=== PATIENT | female | born 1995 | race Caucasian/White ===

== ENCOUNTER 2018-04-12 22:34 | Observation (INO) | payer MEDICAID ==
[~2018-04-12] VITALS: Ht 149.9 cm; Wt 53.6 kg
[2018-04-12 22:43] VITALS: BP 124/69
[2018-04-12 23:22] LABS: MICROSCOPIC INDICATED
[2018-04-13 00:11] LABS: MICROSCOPIC NOT IND
[2018-04-13 00:54] LABS: CULTURE INDICATED? NO
== END 2018-04-13 01:40 | disposition home or self-care (01) ==
LOC: LDOP 22:34 → LDIP 04-13 00:30
PROVIDERS: ADMIT Student in an Organized Health Care Education/Training Program; ATTEND Student in an Organized Health Care Education/Training Program
DX: O47.03 False labor before 37 completed weeks of gestation, third trimester (principal); Z3A.35 35 weeks gestation of pregnancy
CPT/HCPCS: 59025; 81001; 81003; 87086; 99211; G0378; G0463

== ENCOUNTER 2018-05-13 22:34 | Inpatient (IN) | payer MEDICAID ==
[~2018-05-13] VITALS: Ht 149.9 cm; Wt 57.0 kg
[2018-05-13] MEDS ORDERED: D5%-LACTATED RINGERS 1,000 ML IV SCH (22:54)
[2018-05-13] MEDS ORDERED: OXYTOCIN 30U/ 0.9% NaCL 500ML 500 ML IV ONE (22:54)
[2018-05-13] MEDS ORDERED: FENTANYL/BUPIV./NS/PF 250 ML EPIDCONT SCH (22:58)
[2018-05-13] MEDS ORDERED: FENTANYL PF 100 MCG/2ML IV PRN (23:00)
[2018-05-13] MEDS ORDERED: METOCLOPRAMIDE 5 MG/ML, 2ML IVPush PRN (23:00)
[2018-05-13] MEDS ORDERED: ONDANSETRON 2MG/ML, 2ML IVPush PRN (23:00)
[2018-05-13] MEDS ORDERED: FENTANYL PF 100 MCG/2ML IVPush PRN (23:00)
[2018-05-13] MEDS ORDERED: NEWBORN KIT ONE (23:10)
[2018-05-13] MEDS ORDERED: MISOPROSTOL 200 MCG TABLET ONE (23:10)
[2018-05-13] MEDS: LACTATED RINGERS 1,000 ML IV SCH (23:11)
[2018-05-13] MEDS ORDERED: LIDOCAINE 1%, 10ML ONE ×2 (23:11)
[2018-05-13 23:14] LABS: BASOPHILS # (AUTO) 0.04 x10^3/uL (0-0.1); BASOPHILS % (AUTO) 0 % (0-1); EOSINOPHILS # (AUTO) 0.06 x10^3/uL (0-0.4); EOSINOPHILS % (AUTO) 1 % (1-7); LYMPHOCYTES # (AUTO) 3.54 x10^3/uL (1-3.4); LYMPHOCYTES % (AUTO) 26 % (22-44); MD NO; MEAN CORPUSCULAR HGB CONC 33.1 g/dL (32.4-35.8); MEAN CORPUSCULAR VOLUME 81.7 fL (80-100); MONOCYTES # (AUTO) 1.05 x10^3/uL (0.2-0.8); MONOCYTES % (AUTO) 8 % (2-9); NEUTROPHILS % (AUTO) 66 % (42-75); PLATELET COUNT 250 x10^3/uL (130-400); RED BLOOD COUNT 4.05 x10^6/uL (3.82-5.3); RED CELL DISTRIBUTION WIDTH 14.5 % (9.6-15.2)
[2018-05-13] MEDS ORDERED: FENTANYL PF 500 MCG, BUPIVACAINE/PF 0.5%, 30ML 62.5 ML in SODIUM CHLORIDE 0.9% 177.5 ML EPIDCONT SCH (23:30)
[2018-05-13] MEDS ORDERED: BUPIVACAINE 0.25% ONE (23:57)
[2018-05-14] MEDS ORDERED: FENTANYL/BUPIV./NS/PF 250 ML EPIDCONT SCH (00:39)
[2018-05-14] MEDS ORDERED: OXYTOCIN 30U/ 0.9% NaCL 500ML 500 ML ONE (00:49)
[2018-05-14] MEDS ORDERED: ONDANSETRON 2MG/ML, 2ML IVPush PRN (01:00)
[2018-05-14] MEDS ORDERED: LACTATED RINGERS 1,000 ML IVBOLUS PRN (01:00)
[2018-05-14] MEDS ORDERED: EPHEDRINE 50 MG/ML, 1ML IVPush PRN (01:00)
[2018-05-14] MEDS ORDERED: DIPHENHYDRAMINE 50 MG/ML, 1ML IVPush PRN (01:00)
[2018-05-14] MEDS ORDERED: NALOXONE 0.4 MG/ML, 1ML IVPush PRN (01:00)
[2018-05-14] MEDS ORDERED: OXYTOCIN 30U/ 0.9% NaCL 500ML 500 ML IV PRN (04:30)
[2018-05-14] MEDS: LACTATED RINGERS 1,000 ML IV SCH ×6 (05:37→20:54)
[2018-05-14] MEDS ORDERED: SODIUM CITRATE/CITRIC ACID 30 ML UDC ONE (22:47)
[2018-05-14] MEDS ORDERED: METOCLOPRAMIDE 5 MG/ML, 2ML ONE (22:48)
[2018-05-15] MEDS: LACTATED RINGERS 1,000 ML IV SCH ×7 (00:26→22:18)
[2018-05-15] MEDS ORDERED: SODIUM CITRATE/CITRIC ACID 30 ML UDC PO ONE (00:30)
[2018-05-15] MEDS ORDERED: METOCLOPRAMIDE 5 MG/ML, 2ML IV ONE (00:30)
[2018-05-15] MEDS ORDERED: CEFAZOLIN PMX 1GM/50ML 50 ML IVPB ONE (00:30)
[2018-05-15] MEDS ORDERED: CEFAZOLIN 1,000 MG ONE (00:41)
[2018-05-15] MEDS ORDERED: PHENYLEPHRINE 10 MG/ML ONE (00:41)
[2018-05-15] MEDS ORDERED: FENTANYL PF 100 MCG/2ML ONE ×2 (00:41→00:42)
[2018-05-15] MEDS ORDERED: SUCCINYLCHOLINE 20 MG/ML, 10ML ONE (00:41)
[2018-05-15] MEDS ORDERED: EPHEDRINE 50 MG/ML, 1ML ONE (00:41)
[2018-05-15] MEDS ORDERED: PROPOFOL 10 MG/ML, 20ML ONE (00:41)
[2018-05-15] MEDS ORDERED: DEXAMETHASONE 4 MG/ML, 1ML ONE (00:41)
[2018-05-15] MEDS ORDERED: OXYTOCIN 10 UNITS/ML, 1ML ONE (00:41)
[2018-05-15] MEDS ORDERED: KETOROLAC 30 MG/1 ML ONE (00:41)
[2018-05-15] MEDS ORDERED: ONDANSETRON 2MG/ML, 2ML ONE (00:41)
[2018-05-15] MEDS ORDERED: METOCLOPRAMIDE 5 MG/ML, 2ML ONE (00:48)
[2018-05-15] MEDS ORDERED: AZITHROMYCIN 500 MG in SODIUM CHLORIDE 0.9% 250 ML IV STA (00:52)
[2018-05-15] MEDS ORDERED: EPHEDRINE 50 MG/ML, 1ML IVPush PRN (01:00)
[2018-05-15] MEDS ORDERED: OXYcodone 5 MG/5 ML ORAL.SOL UDC PO PRN (01:00)
[2018-05-15] MEDS ORDERED: HYDROmorphone 1 MG/ML, 1ML IV PRN ×2 (01:00)
[2018-05-15] MEDS ORDERED: PROMETHAZINE 25 MG/ML, 1ML IV PRN (01:00)
[2018-05-15] MEDS ORDERED: ALBUTEROL SULFATE 2.5 MG/3 ML NPPB PRN (01:00)
[2018-05-15] MEDS ORDERED: FENTANYL PF 100 MCG/2ML IV PRN (01:00)
[2018-05-15] MEDS ORDERED: ONDANSETRON 2MG/ML, 2ML IVPush PRN (01:00)
[2018-05-15] MEDS ORDERED: hydrALAzine 20 MG/ML, 1ML IV PRN (01:00)
[2018-05-15] MEDS ORDERED: LABETALOL 5MG/ML, 20ML IV PRN (01:00)
[2018-05-15] MEDS ORDERED: MEPERIDINE/PF 25MG/0.5ML IVPush PRN (01:00)
[2018-05-15] MEDS ORDERED: MIDAZOLAM 1 MG/ML, 2ML IV PRN (01:00)
[2018-05-15] MEDS ORDERED: HYDROcodone/APAP 7.5-325MG/15ML UDC PO PRN (01:00)
[2018-05-15] MEDS ORDERED: HYDROmorphone 2 MG/ML, 1ML ONE (01:19)
[2018-05-15] MEDS: OXYTOCIN 30U/ 0.9% NaCL 500ML 500 ML IV SCH ×3 (02:18→22:18)
[2018-05-15] MEDS ORDERED: OXYcodone IR 5MG TABLET PO PRN (02:30)
[2018-05-15] MEDS ORDERED: CALCIUM CARBONATE 500 MG TAB.CHEW PO PRN (02:30)
[2018-05-15] MEDS ORDERED: morphine SULFATE 10 MG/ML, 1ML IVPush PRN ×2 (02:30)
[2018-05-15] MEDS ORDERED: ONDANSETRON 2MG/ML, 2ML IV PRN (02:30)
[2018-05-15] MEDS ORDERED: BISACODYL 10 MG SUPP PR PRN (02:30)
[2018-05-15] MEDS ORDERED: MISOPROSTOL 200 MCG TABLET PR PRN (02:30)
[2018-05-15 03:45] VITALS: BP 137/89
[2018-05-15 04:30] VITALS: BP 130/86
[2018-05-15 07:25] VITALS: BP 122/77
[2018-05-15] MEDS: KETOROLAC 30 MG/1 ML IV SCH ×3 (07:58→20:03)
[2018-05-15] MEDS: ACETAMINOPHEN 325 MG TABLET PO SCH ×3 (07:58→20:03)
[2018-05-15 08:58] LABS: MEAN CORPUSCULAR HEMOGLOBIN 27.5 pg (27.0-34.8); MEAN CORPUSCULAR HGB CONC 33.6 g/dL (32.4-35.8); MEAN CORPUSCULAR VOLUME 81.9 fL (80-100); MEAN PLATELET VOLUME 10.6 fL (7.4-10.4); PLATELET COUNT 133 x10^3/uL (130-400); RED BLOOD COUNT 3.23 x10^6/uL (3.82-5.3); RED CELL DISTRIBUTION WIDTH 14.3 % (9.6-15.2)
[2018-05-15 09:20] LABS: MD YES
[2018-05-15 10:41] LABS: <RBC MORPHOLOGY> NORMAL; BAND#(MANUAL) 1.29 x10^3/uL; BANDS%(MANUAL) 8 % (0-7); LYMPH#(MANUAL) 0.97 x10^3/uL (1-3.4); LYMPHS% (MANUAL) 6 % (22-44); MONOS#(MANUAL) 0.32 x10^3/uL (0.3-2.7); MONOS% (MANUAL) 2 % (2-9); SEG#(MANUAL) 13.52 x10^3/uL (1.8-6.8); SEGS% (MANUAL) 84 % (42-75)
[2018-05-15 10:42] LABS: <PLATELET ESTIMATE> ADEQUATE; LARGE PLATELETS 1+
[2018-05-15 10:43] LABS: TOXIC GRAN 1+
[2018-05-15] MEDS: DOCUSATE 100 MG CAPSULE PO SCH ×2 (10:50→20:03)
[2018-05-15] MEDS: PRENATAL VIT/IRON/FA 1 EACH TABLET PO SCH (10:50)
[2018-05-15 11:52] VITALS: BP 111/72
[2018-05-15 17:07] VITALS: BP 106/70
[2018-05-15 19:20] VITALS: BP 106/68
[2018-05-15] MEDS: SIMETHICONE 80 MG CHEW TAB PO PRN (20:04)
[2018-05-16 00:10] VITALS: BP 99/63
[2018-05-16] MEDS: OXYcodone IR 5MG TABLET PO PRN ×5 (00:25→20:25)
[2018-05-16] MEDS: KETOROLAC 30 MG/1 ML IV SCH (02:00)
[2018-05-16] MEDS: SIMETHICONE 80 MG CHEW TAB PO PRN ×4 (02:03→21:07)
[2018-05-16] MEDS: IBUPROFEN 600 MG TABLET PO SCH ×4 (02:04→23:21)
[2018-05-16] MEDS: ACETAMINOPHEN 325 MG TABLET PO SCH ×4 (02:04→21:07)
[2018-05-16 07:30] VITALS: BP 109/72
[2018-05-16] MEDS: LACTATED RINGERS 1,000 ML IV SCH ×2 (08:10→17:14)
[2018-05-16] MEDS: OXYTOCIN 30U/ 0.9% NaCL 500ML 500 ML IV SCH ×2 (08:10→17:14)
[2018-05-16] MEDS: DOCUSATE 100 MG CAPSULE PO SCH ×2 (08:17→20:25)
[2018-05-16] MEDS: PRENATAL VIT/IRON/FA 1 EACH TABLET PO SCH (08:18)
[2018-05-16 19:40] VITALS: BP 103/69
[2018-05-17] MEDS: OXYcodone IR 5MG TABLET PO PRN ×4 (02:16→20:48)
[2018-05-17] MEDS: SIMETHICONE 80 MG CHEW TAB PO PRN ×2 (03:17→20:47)
[2018-05-17] MEDS: ACETAMINOPHEN 325 MG TABLET PO SCH ×4 (03:17→22:07)
[2018-05-17] MEDS: LACTATED RINGERS 1,000 ML IV SCH ×2 (04:18→14:18)
[2018-05-17] MEDS: OXYTOCIN 30U/ 0.9% NaCL 500ML 500 ML IV SCH ×2 (04:18→14:18)
[2018-05-17] MEDS: IBUPROFEN 600 MG TABLET PO SCH ×3 (05:23→18:24)
[2018-05-17 07:35] VITALS: BP 105/67
[2018-05-17] MEDS: DOCUSATE 100 MG CAPSULE PO SCH ×2 (08:13→20:47)
[2018-05-17] MEDS: PRENATAL VIT/IRON/FA 1 EACH TABLET PO SCH (08:13)
[2018-05-17 20:28] VITALS: BP 128/81
[2018-05-18] MEDS: OXYTOCIN 30U/ 0.9% NaCL 500ML 500 ML IV SCH (00:18)
[2018-05-18] MEDS: LACTATED RINGERS 1,000 ML IV SCH (00:18)
[2018-05-18] MEDS: IBUPROFEN 600 MG TABLET PO SCH ×3 (00:33→12:00)
[2018-05-18] MEDS: OXYcodone IR 5MG TABLET PO PRN ×3 (00:33→08:57)
[2018-05-18] MEDS: SIMETHICONE 80 MG CHEW TAB PO PRN (04:19)
[2018-05-18] MEDS: ACETAMINOPHEN 325 MG TABLET PO SCH ×2 (04:19→10:00)
[2018-05-18] MEDS: PRENATAL VIT/IRON/FA 1 EACH TABLET PO SCH (08:57)
[2018-05-18] MEDS: DOCUSATE 100 MG CAPSULE PO SCH (08:57)
[2018-05-18] MEDS ORDERED: OXYC-302 PO (10:31)
[2018-05-18] MEDS ORDERED: IBUP-1222 PO (10:31)
[2018-05-18] MEDS ORDERED: FERR325T5 PO (10:33)
== END 2018-05-18 14:43 | disposition home or self-care (01) | DRG 788 ==
LOC: LDOP 22:34 → LDIP 22:49 → 2NW 05-15 03:20
PROVIDERS: ADMIT Student in an Organized Health Care Education/Training Program; ATTEND Student in an Organized Health Care Education/Training Program
PROC: 10D00Z1 Extraction of Products of Conception, Low, Open Approach (ICD-10-PCS; principal; 2018-05-15)
DX: O76 Abnormality in fetal heart rate and rhythm complicating labor and delivery (principal); O75.81 Maternal exhaustion complicating labor and delivery; O63.1 Prolonged second stage (of labor); O69.1XX0 Labor and delivery complicated by cord around neck, with compression, not applicable or unspecified; O64.0XX0 Obstructed labor due to incomplete rotation of fetal head, not applicable or unspecified; O62.1 Secondary uterine inertia; Z3A.39 39 weeks gestation of pregnancy; Z37.0 Single live birth; Z83.3 Family history of diabetes mellitus
CPT/HCPCS: 36415; J7121; 85025; 86762; 86850; 86900; G0378; J0690; J1100; J1170; J1885; J2405; J2704; J3010; J3490; J0330; J2370; J2590; J2765; J7050; J7120

== ENCOUNTER 2020-04-21 16:13 | Outpatient (CLI) | payer MEDICAID ==
[~2020-04-21] VITALS: Ht 149.9 cm; Wt 58.1 kg
[~2020-04-21 16:13] MED LIST: FERR325T5 PO; IBUP-1222 PO; OXYC-302 PO
[2020-04-21 16:37] VITALS: BP 107/61
[2020-04-21 16:53] LABS: MICROSCOPIC INDICATED
== END 2020-04-21 18:05 | disposition home or self-care (01) ==
LOC: LDOP 16:13
PROVIDERS: ATTEND Student in an Organized Health Care Education/Training Program
DX: O26.893 Other specified pregnancy related conditions, third trimester (principal); R10.9 Unspecified abdominal pain; Z3A.31 31 weeks gestation of pregnancy
CPT/HCPCS: 59025; 76817; 81001; 87086

== ENCOUNTER 2020-05-23 17:25 | Outpatient (CLI) | payer MEDICAID ==
[~2020-05-23] VITALS: Ht 149.9 cm; Wt 60.5 kg
[2020-05-23] MEDS ORDERED: atarax (17:37)
[2020-05-23] MEDS ORDERED: PREN1TAB60 PO (17:37)
[2020-05-23 17:59] VITALS: BP 101/55
[2020-05-23 18:02] LABS: MICROSCOPIC INDICATED
== END 2020-05-23 19:26 | disposition home or self-care (01) ==
LOC: LDOP 17:25
PROVIDERS: ATTEND Student in an Organized Health Care Education/Training Program
DX: O26.893 Other specified pregnancy related conditions, third trimester (principal); R10.9 Unspecified abdominal pain; Z3A.36 36 weeks gestation of pregnancy
CPT/HCPCS: 59025; 81001; 87086

== ENCOUNTER 2020-06-07 00:29 | Outpatient (CLI) | payer MEDICAID ==
[~2020-06-07] VITALS: Ht 149.9 cm; Wt 60.5 kg
[~2020-06-07 00:29] MED LIST changes: +PREN1TAB60 PO; +atarax
== END 2020-06-07 02:17 | disposition home or self-care (01) ==
LOC: LDOP 00:29
PROVIDERS: ATTEND Student in an Organized Health Care Education/Training Program
DX: O26.893 Other specified pregnancy related conditions, third trimester (principal); R10.9 Unspecified abdominal pain; Z3A.28 28 weeks gestation of pregnancy
CPT/HCPCS: 59025

== ENCOUNTER 2020-06-08 08:22 | Inpatient (IN) | payer MEDICAID ==
[~2020-06-08] VITALS: Ht 149.9 cm; Wt 60.5 kg
[2020-06-08] MEDS ORDERED: SODIUM CITRATE/CITRIC ACID 15 ML UDC ONE (08:34)
[2020-06-08] MEDS ORDERED: METOCLOPRAMIDE 5 MG/ML, 2ML ONE (08:34)
[2020-06-08] MEDS ORDERED: NEWBORN KIT ONE (08:34)
[2020-06-08] MEDS ORDERED: OXYTOCIN 30U/ 0.9% NaCL 500ML 500 ML ONE (08:34)
[2020-06-08] MEDS ORDERED: PLEASE ENTER HEIGHT AND WEIGHT MC SCH (09:00)
[2020-06-08] MEDS ORDERED: LACTATED RINGERS 1,000 ML IVBOLUS ONE ×2 (09:00)
[2020-06-08] MEDS ORDERED: SODIUM CITRATE/CITRIC ACID 30 ML UDC PO ONE ×2 (09:00)
[2020-06-08] MEDS ORDERED: METOCLOPRAMIDE 5 MG/ML, 2ML IV ONE ×2 (09:00)
[2020-06-08] MEDS ORDERED: OXYTOCIN 10 UNITS/ML, 1ML ONE (09:05)
[2020-06-08] MEDS ORDERED: ONDANSETRON 2MG/ML, 2ML ONE (09:05)
[2020-06-08] MEDS ORDERED: CEFAZOLIN 1,000 MG ONE (09:05)
[2020-06-08] MEDS ORDERED: FENTANYL PF 100 MCG/2ML ONE (09:06)
[2020-06-08] MEDS ORDERED: HYDROmorphone 2 MG/ML, 1ML ONE (09:06)
[2020-06-08 09:15] LABS: BASOPHILS % (AUTO) 0 % (0-1); EOSINOPHILS % (AUTO) 0 % (1-7); LYMPHOCYTES % (AUTO) 22 % (22-44); MEAN CORPUSCULAR HEMOGLOBIN 26.4 pg (27.0-34.8); MEAN CORPUSCULAR HGB CONC 33.5 g/dL (32.4-35.8); MEAN PLATELET VOLUME 9.9 fL (7.4-10.4); MONOCYTES % (AUTO) 5 % (2-9); NEUTROPHILS % (AUTO) 73 % (42-75); PLATELET COUNT 179 x10^3/uL (130-400); RED BLOOD COUNT 3.99 x10^6/uL (3.82-5.3); RED CELL DISTRIBUTION WIDTH 14.9 % (9.6-15.2)
[2020-06-08 09:17] LABS: MD NO
[2020-06-08] MEDS: LACTATED RINGERS 1,000 ML IV SCH ×3 (09:20→21:00)
[2020-06-08] MEDS ORDERED: MEPERIDINE/PF 50 MG/ML ONE (10:15)
[2020-06-08] MEDS ORDERED: KETOROLAC 30 MG/1 ML ONE (10:21)
[2020-06-08] MEDS ORDERED: MISOPROSTOL 200 MCG TABLET PR PRN (11:00)
[2020-06-08] MEDS: OXYTOCIN 30U/ 0.9% NaCL 500ML 500 ML IV SCH ×2 (11:00→21:00)
[2020-06-08] MEDS: KETOROLAC 30 MG/1 ML IV SCH ×3 (11:00→22:32)
[2020-06-08] MEDS ORDERED: morphine SULFATE 10 MG/ML, 1ML IVPush PRN (11:00)
[2020-06-08] MEDS ORDERED: OXYcodone/APAP 5/325MG TABLET PO PRN (11:00)
[2020-06-08] MEDS: OXYcodone IR 5MG TABLET PO PRN ×3 (13:19→22:33)
[2020-06-08 13:20] VITALS: BP 104/64
[2020-06-08] MEDS: MORPHINE SULFATE 4 MG/ML, 1ML IVPush PRN ×2 (16:48→17:20)
[2020-06-08 16:51] VITALS: BP 102/58
[2020-06-08 19:24] LABS: BASOPHILS % (AUTO) 0 % (0-1); EOSINOPHILS % (AUTO) 0 % (1-7); LYMPHOCYTES % (AUTO) 23 % (22-44); MEAN CORPUSCULAR HEMOGLOBIN 26.4 pg (27.0-34.8); MEAN CORPUSCULAR HGB CONC 33.1 g/dL (32.4-35.8); MEAN PLATELET VOLUME 9.7 fL (7.4-10.4); MONOCYTES % (AUTO) 6 % (2-9); NEUTROPHILS % (AUTO) 70 % (42-75); PLATELET COUNT 160 x10^3/uL (130-400); RED CELL DISTRIBUTION WIDTH 15.2 % (9.6-15.2)
[2020-06-08 19:29] LABS: MD NO
[2020-06-08 20:00] VITALS: BP 99/69
[2020-06-08] MEDS: DOCUSATE 100 MG CAPSULE PO PRN (22:32)
[2020-06-09 00:10] VITALS: BP 101/66
[2020-06-09] MEDS: LACTATED RINGERS 1,000 ML IV SCH ×5 (02:46→19:00)
[2020-06-09] MEDS: OXYcodone IR 5MG TABLET PO PRN ×3 (03:07→13:39)
[2020-06-09 04:35] VITALS: BP 102/70
[2020-06-09] MEDS: KETOROLAC 30 MG/1 ML IV SCH (04:49)
[2020-06-09] MEDS: OXYTOCIN 30U/ 0.9% NaCL 500ML 500 ML IV SCH ×2 (07:00→17:00)
[2020-06-09] MEDS: PRENATAL VIT/IRON/FA 1 EACH TABLET PO SCH (07:41)
[2020-06-09] MEDS: DOCUSATE 100 MG CAPSULE PO PRN ×2 (07:41→19:27)
[2020-06-09 07:58] VITALS: BP 104/68
[2020-06-09] MEDS: IBUPROFEN 600 MG TABLET PO PRN ×2 (13:39→19:27)
[2020-06-09] MEDS: FERROUS SULFATE 325 MG TABLET PO SCH (17:00)
[2020-06-09] MEDS: SIMETHICONE 80 MG CHEW TAB PO PRN (19:27)
[2020-06-09] MEDS ORDERED: ONDANSETRON ODT 4 MG PO PRN (19:30)
[2020-06-09 19:45] VITALS: BP 101/66
[2020-06-10] MEDS: OXYcodone IR 5MG TABLET PO PRN ×2 (00:28→07:21)
[2020-06-10] MEDS: SIMETHICONE 80 MG CHEW TAB PO PRN ×2 (01:40→07:20)
[2020-06-10] MEDS: IBUPROFEN 600 MG TABLET PO PRN ×2 (01:40→07:20)
[2020-06-10] MEDS: OXYTOCIN 30U/ 0.9% NaCL 500ML 500 ML IV SCH (03:00)
[2020-06-10] MEDS: LACTATED RINGERS 1,000 ML IV SCH ×3 (03:00→11:00)
[2020-06-10 07:15] VITALS: BP 95/60
[2020-06-10] MEDS: PRENATAL VIT/IRON/FA 1 EACH TABLET PO SCH (07:20)
[2020-06-10] MEDS: FERROUS SULFATE 325 MG TABLET PO SCH (07:20)
[2020-06-10] MEDS: DOCUSATE 100 MG CAPSULE PO PRN (07:21)
[2020-06-10] MEDS ORDERED: IBUP-1222 PO (07:32)
[2020-06-10] MEDS ORDERED: OXYC5TAB3 PO (07:33)
== END 2020-06-10 12:32 | disposition home or self-care (01) | DRG 540 ==
LOC: LDOP 08:22 → LDIP 08:38 → 2NW 12:54
PROVIDERS: ADMIT Student in an Organized Health Care Education/Training Program; ATTEND Student in an Organized Health Care Education/Training Program
PROC: 10D00Z1 Extraction of Products of Conception, Low, Open Approach (ICD-10-PCS; principal; 2020-06-08)
DX: O34.211 Maternal care for low transverse scar from previous cesarean delivery (principal); O77.0 Labor and delivery complicated by meconium in amniotic fluid; O99.72 Diseases of the skin and subcutaneous tissue complicating childbirth; O62.2 Other uterine inertia; Z20.822 Contact with and (suspected) exposure to COVID-19; L91.0 Hypertrophic scar; Z37.0 Single live birth; Z3A.38 38 weeks gestation of pregnancy
CPT/HCPCS: 36415; 85025; 86592; 86850; 86900; 87635; 87806; G0378; J0690; J1170; J1885; J2175; J2405; J3010; Q0162; G0475; J2270; J2590; J2765; J7120